=== PATIENT | female | born 1980 | race Caucasian/White ===

== ENCOUNTER 2024-02-14 18:50 | Emergency (ER) | payer MEDICAID ==
[2024-02-14 19:05] VITALS: TEMP 98; O2SAT 98
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
[2024-02-14 19:47] LABS: BASOPHIL % 0.2 % (0.1-1.2); Basophil (Absolute #) 0.04 x10^3/uL (0.01-0.08); Eosinophil % 0.4 % (0.7-5.8); Eosinophil (Absolute #) 0.08 x10^3/uL (0.04-0.36); Hematocrit 43.9 % (34.1-44.9); Hemoglobin 14.8 g/dL (11.2-15.7); IMMATURE GRAN % 0.5 % (0.001-0.429); Lymphocyte (Absolute #) 2.04 x10^3/uL (1.18-3.74); Lymphocytes % 10.2 % (19.3-51.7); Mean Cell Volume 90.1 fL (79.4-94.8); Mean Corpuscular Hemoglobin 30.4 pg (25.6-32.2); Mean Corpuscular Hgb Concent. 33.7 g/dL (32.2-35.5); Mean Platelet Volume 10.5 fL (9.4-12.3); Monocyte (Absolute #) 1.29 x10^3/uL (0.24-0.86); Monocytes % 6.5 % (4.7-12.5); Neutrophil % 82.2 % (34.0-71.1); Platelet Count 251 x10^3/uL (182-369); Red Blood Count 4.87 x10^6/uL (3.93-5.22); Red Cell Distribution Width 13.4 % (11.7-14.4)
[2024-02-14] MEDS ORDERED: Zofran 4 MG/2 ML VIAL ONE (19:48)
[2024-02-14] MEDS ORDERED: TORAdol 30 mg Injection ONE (19:48)
[2024-02-14] MEDS ORDERED: Sodium Chloride 0.9% 1000 ML 1,000 ML ONE (19:48)
[2024-02-14] MEDS: TORAdol 30 mg Injection IV ONE (19:53)
[2024-02-14] MEDS: Sodium Chloride 0.9% 1000 ML 1,000 ML IV SCH (19:53)
[2024-02-14] MEDS: Zofran 4 MG/2 ML VIAL IV ONE (19:53)
[2024-02-14 20:27] LABS: ALBUMIN 4.9 g/dL (3.5-5.0); ANION GAP 18.3 MEQ/L (5-15); BILIRUBIN,TOTAL 0.3 mg/dL (0.2-1.3); Calcium 9.1 mg/dL (8.4-10.2); Creatinine 1 0.69 mg/dL (0.52-1.04); EST GLOMERULAR FILTRATION RATE 110.4 ML/MIN; Potassium 3.4 mmol/L (3.5-5.1); Total Protein 7.9 g/dL (6.3-8.2)
[2024-02-14 21:04] LABS: HCG URINE TEST NEGATIVE (NEGATIVE)
[2024-02-14 21:08] LABS: Appearance Turbid (Clear); Bacteria None Seen /HPF (None Seen); Bilirubin Negative (Negative); Blood Negative (Negative); Epithelial Cells Moderate /HPF (None Seen); Glucose, Urine Negative (Negative); Hyaline Casts NONE SEEN /LPF (0-2); Ketones Negative (Negative); Leukocyte Esterase Negative (Negative); Nitrite Negative (Negative); Ph 7.5 (4.6-8.0); Protein,Urine Dip Trace (Negative); Specific Gravity 1.025 (1.005-1.030); WBC 0-2 /HPF (0-5)
[2024-02-14 22:12] VITALS: BP 138/92; PULSE 79; RESP 22
--- NOTE | 2024-02-15 09:01 | XRAY ---
Indication: Left chest pain following fall. Multiple contiguous axial images obtained through the chest without contrast. Comparison: None Lungs demonstrates minimal dependent atelectasis and mild left lower lobe subsegmental atelectasis/scarring. No suspicious pulmonary mass/nodule, infiltrate, effusion, or pneumothorax. Heart not enlarged. Aorta is normal in course and caliber. No pathologic mediastinal lymphadenopathy. Bony thorax intact with mild double curvature thoracolumbar scoliosis. Limited upper abdomen demonstrates fluid/food distended stomach. Impression: Chronic findings including atelectasis/scarring and scoliosis. Remaining CT chest without contrast exam is negative.
== END 2024-02-14 22:21 | disposition home or self-care (01) ==
LOC: ED 18:50
DX: R07.81 Pleurodynia (principal); W00.0XXA Fall on same level due to ice and snow, initial encounter; R11.2 Nausea with vomiting, unspecified; Z72.0 Tobacco use
CPT/HCPCS: 36415; 71250; 80053; 81001; 81025; 84484; 85025; 87040; 93041; 94760; 96374; 96375; 99284; J1885; J2405